=== PATIENT | female | born 1990 ===

== ENCOUNTER 2021-10-13 04:48 | Inpatient (IN) | payer BC ==
[2021-10-13] MEDS ORDERED: Lidocaine 1% 50 ML MDV INJECT PRN (05:13)
[2021-10-13] MEDS ORDERED: Butorphanol 1 MG/ML SDV IVPUSH PRN (05:13)
[2021-10-13] MEDS ORDERED: Carboprost Tromethamine 250 MCG/1 ML Amp IM PRN (05:13)
[2021-10-13] MEDS ORDERED: Sodium Chloride 0.9% 10 ML Syringe FLUSH PRN (05:13)
[2021-10-13] MEDS ORDERED: Tranexamic Acid 1,000 MG in Sodium Chloride 0.9% 100 ML IV PRN (05:13)
[2021-10-13] MEDS ORDERED: Sodium Chloride 0.9% 2.5 ML Syringe FLUSH PRN (05:13)
[2021-10-13] MEDS ORDERED: Methylergonovine 0.2 MG/1 ML Amp IM PRN (05:13)
[2021-10-13] MEDS ORDERED: Water For Irrigation,Sterile 1,000 ML Container IRR PRN (05:13)
[2021-10-13] MEDS ORDERED: Misoprostol 25 MCG (1/4 of 100 MCG) Tab VAG PRN ×2 (05:13)
[2021-10-13] MEDS ORDERED: Misoprostol 200 MCG Tab PO PRN (05:13)
[2021-10-13] MEDS ORDERED: Sodium Chloride 0.9% 20 ML SDV IV PRN (05:13)
[2021-10-13] MEDS ORDERED: Terbutaline 1 MG/ML SDV SUBCUT PRN (05:13)
[2021-10-13] MEDS ORDERED: Ondansetron 4 MG/2 ML SDV IVPUSH PRN (05:13)
[2021-10-13] MEDS ORDERED: Lactated Ringers 1,000 ML IV SCH (05:15)
[2021-10-13] MEDS ORDERED: Oxytocin/0.9 % Sodium Chloride 30 UNIT/500 ML BAG IV SCH ×2 (05:15)
[2021-10-13] MEDS ORDERED: Lanolin 100% Cream 7 GM Tube TOP PRN (13:34)
[2021-10-13] MEDS ORDERED: Acetaminophen 500 MG Tab PO PRN (13:34)
[2021-10-13] MEDS ORDERED: Ibuprofen 400 MG Tab PO PRN (13:34)
[2021-10-13] MEDS ORDERED: Bisacodyl 10 MG Supp RECTAL PRN (13:34)
[2021-10-13] MEDS ORDERED: Benzocaine/Menthol 20%-0.5% Spray 78 GM Cannister TOP PRN (13:34)
[2021-10-13] MEDS ORDERED: Witch Hazel Medicated Pads 40/Jar TOP PRN (13:34)
[2021-10-13] MEDS: Ibuprofen 800 MG Tab PO PRN ×2 (13:47→20:42)
[2021-10-13] MEDS ORDERED: Labetalol 100 MG Tab PO ONE (14:21)
[2021-10-13] MEDS: Acetaminophen 500 MG Tab PO PRN (16:14)
[2021-10-13] MEDS: Docusate Sodium 100 MG Cap PO PRN (20:43)
[2021-10-14] MEDS: Acetaminophen 500 MG Tab PO PRN ×2 (02:29→14:25)
[2021-10-14] MEDS: Ibuprofen 800 MG Tab PO PRN ×2 (08:48→21:11)
[2021-10-14] MEDS: Docusate Sodium 100 MG Cap PO PRN ×2 (10:09→20:18)
[2021-10-15] MEDS: Acetaminophen 500 MG Tab PO PRN (10:00)
[2021-10-15] MEDS: Docusate Sodium 100 MG Cap PO PRN (10:01)
== END 2021-10-15 16:14 | disposition home or self-care (01) | DRG 560 ==
LOC: MW.OBCHECK 04:48 → MW.OB 04:49 → MW.OBCHECK 05:13 → MW.OB 05:13 → OBSVTOIN 13:35 → MW.OB 14:58
PROVIDERS: ADMIT Obstetrics & Gynecology; ATTEND Obstetrics & Gynecology
PROC: 10E0XZZ Delivery of Products of Conception, External Approach (ICD-10-PCS; principal; 2021-10-13)
PROC: 10E0XZZ Delivery of Products of Conception, External Approach (ICD-10-PCS; 2021-10-13)
PROC: 10907ZC Drainage of Amniotic Fluid, Therapeutic from Products of Conception, Via Natural or Artificial Opening (ICD-10-PCS; 2021-10-13)
PROC: 3E0P7VZ Introduction of Hormone into Female Reproductive, Via Natural or Artificial Opening (ICD-10-PCS; 2021-10-13)
PROC: 0KQM0ZZ Repair Perineum Muscle, Open Approach (ICD-10-PCS; 2021-10-13)
DX: O36.5930 Maternal care for other known or suspected poor fetal growth, third trimester, not applicable or unspecified (principal); Z3A.37 37 weeks gestation of pregnancy; Z37.0 Single live birth; O70.1 Second degree perineal laceration during delivery; Z20.822 Contact with and (suspected) exposure to COVID-19
CPT/HCPCS: 36415; 59025; 59409; 82803; 85014; 85018; 85027; 86592; 86850; 86900; 86901; A9270-GY; J2001; J2590; J7120; U0002

== ENCOUNTER 2024-06-04 10:57 | Inpatient (IN) | payer BC ==
[2024-06-04 12:39] LABS: HEMATOCRIT 33.4 % (37.0-47.0); HEMOGLOBIN 11.7 g/dL (12.0-16.0); MEAN CORPUSCULAR HEMOGLOBIN 31.4 pg (28.0-32.0); MEAN CORPUSCULAR VOLUME 89.5 fL (83.0-99.0); MEAN PLATELET VOLUME 10.1 fL (9.4-12.3); PLATELET COUNT,PLT 230 K/uL (150-400); RED BLOOD CELL COUNT 3.73 M/uL (4.10-5.30); WHITE BLOOD CELL COUNT,WBC 9.22 K/uL (3.9-11.3)
[2024-06-04 12:45] LABS: APPEARANCE,URINE CLOUDY; BILIRUBIN,URINE NEGATIVE (NEGATIVE); COLOR,URINE YELLOW; GLUCOSE,URINE NEGATIVE (NEGATIVE); KETONES,URINE NEGATIVE (NEGATIVE); LEUKOCYTE ESTERASE,URINE SMALL (NEGATIVE); NITRITE,URINE NEGATIVE (NEGATIVE); OCCULT BLOOD,URINE LARGE (NEGATIVE); PROTEIN,URINE NEGATIVE (NEGATIVE); UROBILINOGEN,URINE 0.2 EU/dL (<2.0)
[2024-06-04 13:18] LABS: A/G RATIO 0.7 (0.9-1.6); ALBUMIN 2.7 g/dL (3.4-5.0); BILIRUBIN TOTAL 0.2 mg/dL (0.2-1.0); CALCIUM 9.1 mg/dL (8.5-10.1); CARBON DIOXIDE,CO2 25.4 mmol/L (21.0-32.0); CREATININE 0.5 mg/dL (0.6-1.0); EST CRCL DRUG DOSING (CG) 128.94 mL/min; POTASSIUM,K 3.3 mmol/L (3.5-5.1); PROTEIN TOTAL,TP 6.5 g/dL (6.4-8.2); URIC ACID 3.6 mg/dL (2.6-7.2)
[2024-06-04] MEDS ORDERED: Sodium Chloride 0.9% 2.5 ML Syringe FLUSH PRN (14:03)
[2024-06-04] MEDS ORDERED: Ondansetron 4 MG/2 ML SDV IVPUSH PRN (14:03)
[2024-06-04] MEDS ORDERED: Methylergonovine 0.2 MG/1 ML Amp IM PRN (14:03)
[2024-06-04] MEDS ORDERED: Water For Irrigation,Sterile 1,000 ML Container IRR PRN (14:03)
[2024-06-04] MEDS ORDERED: Carboprost Tromethamine 250 MCG/1 mL Vial IM PRN (14:03)
[2024-06-04] MEDS ORDERED: Misoprostol 200 MCG Tab PO PRN (14:03)
[2024-06-04] MEDS ORDERED: Sodium Chloride 0.9% 20 ML SDV IV PRN (14:03)
[2024-06-04] MEDS ORDERED: Butorphanol 2 MG/ML SDV IVPUSH PRN (14:03)
[2024-06-04] MEDS ORDERED: Sodium Chloride 0.9% 10 ML Syringe FLUSH PRN (14:03)
[2024-06-04] MEDS ORDERED: Terbutaline 1 MG/ML SDV SUBCUT PRN (14:06)
[2024-06-04] MEDS: Lactated Ringers 1,000 ML IV SCH (15:00)
[2024-06-04] MEDS: Oxytocin/0.9 % Sodium Chloride 30 UNIT/500 ML BAG IV SCH ×2 (15:48→18:38)
[2024-06-04] MEDS ORDERED: Phenylephrine HCl In 0.9% NaCl 1 MG/10 ML Syringe IVPUSH PRN (16:47)
[2024-06-04] MEDS ORDERED: ePHEDrine 50 MG/ML SDV IVPUSH PRN (16:47)
[2024-06-04] MEDS ORDERED: Ropivacaine HCl/PF 400 MG in Premix Bag 1 BAG EPIDUR SCH (17:00)
[2024-06-04] MEDS ORDERED: dexmedeTOMIDine HCl 200 MCG/2 ML SDV EPIDUR SCH (17:00)
[2024-06-04] MEDS: Lidocaine 1% 50 ML MDV INJECT PRN (18:45)
[2024-06-04] MEDS ORDERED: Ibuprofen 800 MG Tab PO PRN (18:58)
[2024-06-04] MEDS ORDERED: Acetaminophen 500 MG Tab PO PRN (18:58)
[2024-06-04] MEDS ORDERED: oxyCODONE 5 MG Tab PO PRN (18:58)
[2024-06-04] MEDS ORDERED: Docusate Sodium 100 MG Cap PO PRN (18:58)
[2024-06-04 19:30] LABS: PH,UMBILICAL ARTERIAL 7.37 (7.18-7.38); PH,UMBILICAL VENOUS 7.48 (7.25-7.45)
[2024-06-04] MEDS: Lanolin 100% Cream 7 GM Tube TOP PRN (20:36)
[2024-06-04] MEDS: Witch Hazel Medicated Pads 40/Jar TOP PRN (20:36)
[2024-06-04] MEDS: Benzocaine/Menthol 20%-0.5% Spray 78 GM Cannister TOP PRN (20:37)
[2024-06-05 06:09] LABS: HEMATOCRIT 30.7 % (37.0-47.0)
== END 2024-06-05 22:15 | disposition home or self-care (01) | DRG 560 ==
LOC: MW.OBCHECK 10:57 → MW.OB 14:55 → MW.OBCHECK 14:58 → MW.OB 14:59 → OBSVTOIN 18:58 → MW.OB 21:30
PROVIDERS: ADMIT Obstetrics & Gynecology; ATTEND Obstetrics & Gynecology
PROC: 10E0XZZ Delivery of Products of Conception, External Approach (ICD-10-PCS; principal; 2024-06-04)
PROC: 0HQ9XZZ Repair Perineum Skin, External Approach (ICD-10-PCS; 2024-06-04)
DX: O13.4 Gestational [pregnancy-induced] hypertension without significant proteinuria, complicating childbirth (principal); Z3A.37 37 weeks gestation of pregnancy; Z37.0 Single live birth; O70.0 First degree perineal laceration during delivery
CPT/HCPCS: 36415; 59025; 59409; 80053; 81003; 82803; 84550; 85014; 85018; 85027; 86592; 86850; 86900; 86901; A9270-GY; J2003; J2590; J7120